=== PATIENT | male | born 1970 | race American Indian/Alaskan Native ===

== ENCOUNTER 2016-03-30 01:53 | Inpatient (IN) | payer OTHER ==
[2016-03-30 02:36] LABS: Basophils % (Auto) 1.2 % (0.0-1.8); Eosinophils % (Auto) 0.7 % (0.0-4.3); Hematocrit 43.1 % (35.5-45.6); Hemoglobin 14.6 gm/dl (11.8-15.2); Mean Corpuscular HGB Conc 34 % (32-34); Mean Corpuscular Hemoglobin 31 pg (28-32); Mean Corpuscular Volume 91 fl (84-94); Red Blood Count 4.73 M/mm3 (3.65-5.03); Red Cell Distribution Width 13.5 % (13.2-15.2); White Blood Count 7.8 K/mm3 (4.5-11.0)
[2016-03-30 02:38] LABS: Platelet Count 144 K/mm3 (140-440)
[2016-03-30 02:48] LABS: Blood Urea Nitrogen 9 mg/dL (9-20); Calcium 8.7 mg/dL (8.4-10.2); Carbon Dioxide 25 mmol/L (22-30); Chloride 99.6 mmol/L (98-107); Glucose 103 mg/dL (75-100); Potassium 3.9 mmol/L (3.6-5.0); Sodium 139 mmol/L (137-145)
[2016-03-30 02:53] LABS: Anion Gap 18 mmol/L
[2016-03-30] MEDS ORDERED: NITRO-BID 2% TP ONE (03:07)
[2016-03-30] MEDS ORDERED: MORPHINE IV ONE (03:08)
[2016-03-30] MEDS ORDERED: ZOFRAN IV ONE (03:08)
[2016-03-30] MEDS ORDERED: ASPIRIN PO ONE (03:12)
--- NOTE | 2016-03-30 03:48 | Cat Scan Report ---
FINAL REPORT PROCEDURE: CT HEAD/BRAIN WO CON TECHNIQUE: Computerized tomography of the head was performed without contrast material. HISTORY: RIVERO, SYNCOPE COMPARISON: No prior studies are available for comparison. FINDINGS: Skull and scalp: Normal. Paranasal sinuses: Normal. Ventricles and subarachnoid spaces: Normal. Cerebrum: No evidence of hemorrhage, acute infarction or mass. 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 Cerebellum and brainstem: No evidence of hemorrhage, acute infarction or mass. Vasculature: Normal. Comments: None. IMPRESSION: There is no acute intracranial abnormality.
--- NOTE | 2016-03-30 04:56 | Emergency Department Report ---
ED Chest Pain HPI - General Chief Complaint: Chest Pain Stated Complaint: SYNCOPE/KNEE SWELLING Time Seen by Provider: 03/30/16 02:55 Source: patient Mode of arrival: Ambulatory Limitations: No Limitations - History of Present Illness Initial Comments: 45 year male with a past medical history hypertension presents to Hospital complaints of chest pain since yesterday syncopal episode today. Patient is a left-sided chest tightness that is intermittent with associated shortness of breath. Fluctuates in intensity. Symptoms rated 8/10 in intensity and currently described as a soreness. 2 episodes of vomiting today with associated nausea. One episode of syncope while at work after a vomiting episode. Preceding lightheadedness. Patient struck his head and complains of frontal headache after syncopal episode. No complaints of neck pain or abdominal pain. Patient's been compliant with Norvasc which she was started on in February at the ER visit. He subsequently did follow-up with the clinic and reports that his blood pressure was okay at the time. Denies previous stress test Severity scale (0 -10): 7 - Related Data Previous Rx's Medication Instructions Recorded Last Taken Type Ciprofloxacin HCl [Ciprofloxacin 500 mg PO Q12HR #14 tab 03/09/16 Unknown Rx TAB] amLODIPine [Norvasc] 5 mg PO DAILY #30 tab 03/09/16 Unknown Rx Allergies Allergy/AdvReac Type Severity Reaction Status Date / Time No Known Allergies Allergy Unverified 03/09/16 10:49 YOLANDE score - Yolande Score Age > 65: (0) No Aspirin use within the Past 7 Days: (0) No 3 or more CAD Risk Factors: (1) Yes 2 or more Angina events in past 24 hrs: (1) Yes Known CAD with more than 50% Stenosis: (0) No Elevated Cardiac Markers: (0) No ST Deviation Greater than 0.5mm: (0) No YOLANDE Score: 2 ED Review of Systems ROS: Stated complaint: SYNCOPE/KNEE SWELLING Other details as noted in HPI Comment: All other systems reviewed and negative Other: Constitutional: No fevers chills Eyes: No eye pain visual changes ENT: No ear pain or throat pain Neck: Denies pain Respiratory: Denies cough wheezing Cardiovascular as per HPI GI: Denies abdominal pain : Denies dysuria Musculoskeletal: Denies back pain Skin: Denies rash, lesions, erythema Neurologic: Denies headache, numbness, weakness Psychiatric: Denies suicidal ideation, hallucinations ED Past Medical Hx - Social History Smoking Status: Light Tobacco Smoker Substance Use Type: Alcohol - Medications Home Medications: Home Medications Medication Instructions Recorded Confirmed Last Taken Type Ciprofloxacin HCl [Ciprofloxacin 500 mg PO Q12HR #14 tab 03/09/16 Unknown Rx TAB] amLODIPine [Norvasc] 5 mg PO DAILY #30 tab 03/09/16 Unknown Rx ED Physical Exam - General Limitations: No Limitations - Other Other exam information: General: No limitations, patient is alert in no acute distress Head exam: Atraumatic, normocephalic Eyes exam: Normal appearance, pupils equal reactive to light, extraocular movements intact ENT: Moist mucous membrane, normal oropharynx Neck exam: Normal inspection, full range of motion, no meningismus nontender Respiratory exam: Clear to auscultation bilateral, no wheezes, rales, crackles Cardiovascular: Normal rate and rhythm, normal heart sounds, left-sided chest wall tenderness Abdomen: Soft, nondistended, and nontender, with normal bowel sounds, no rebound, or guarding Extremity: Full range of motion normal inspection no deformity, no specific knee swelling or ankle swelling, or tenderness Back: Normal Inspection, full range of motion, no tenderness Neurologic: Alert, oriented x3, cranial nerves intact, no motor or sensory deficit Psychiatric: normal affect, normal mood Skin: Warm, dry, intact ED Course Vital Signs 03/30/16 03/30/16 03/30/16 02:17 03:10 03:20 Temperature 98.4 F Pulse Rate 90 86 Respiratory 20 18 18 Rate Blood Pressure 181/116 Blood Pressure 185/101 [Left] O2 Sat by Pulse 99 97 97 Oximetry 03/30/16 03:25 Temperature Pulse Rate 87 Respiratory Rate Blood Pressure 183/108 Blood Pressure [Left] O2 Sat by Pulse Oximetry - Reevaluation(s) Reevaluation #1: 03/30/16 05:05 Patient pain improved. Received morphine, nitroglycerin ED Medical Decision Making - Lab Data Result diagrams: 03/30/16 02:27 03/30/16 02:27 Lab Results 03/30/16 03/30/16 03/30/16 Range/Units 02:27 02:27 02:27 WBC 7.8 (4.5-11.0) K/mm3 RBC 4.73 (3.65-5.03) M/mm3 Hgb 14.6 (11.8-15.2) gm/dl Hct 43.1 (35.5-45.6) % MCV 91 (84-94) fl MCH 31 (28-32) pg MCHC 34 (32-34) % RDW 13.5 (13.2-15.2) % Plt Count 144 (140-440) K/mm3 Lymph % (Auto) 38.2 H (13.4-35.0) % Gates % (Auto) 6.1 (0.0-7.3) % Eos % (Auto) 0.7 (0.0-4.3) % Baso % (Auto) 1.2 (0.0-1.8) % Lymph # 3.0 (1.2-5.4) K/mm3 Gates # 0.5 (0.0-0.8) K/mm3 Eos # 0.1 (0.0-0.4) K/mm3 Baso # 0.1 (0.0-0.1) K/mm3 Seg Neutrophils % 53.8 (40.0-70.0) % Seg Neutrophils # 4.2 (1.8-7.7) K/mm3 D-Dimer (0-234) ng/mlDDU Sodium 139 (137-145) mmol/L Potassium 3.9 (3.6-5.0) mmol/L Chloride 99.6 (98-107) mmol/L Carbon Dioxide 25 (22-30) mmol/L Anion Gap 18 mmol/L BUN 9 (9-20) mg/dL Creatinine 0.9 (0.8-1.5) mg/dL Estimated GFR > 60 ml/min BUN/Creatinine Ratio 10.00 % Glucose 103 H (75-100) mg/dL Calcium 8.7 (8.4-10.2) mg/dL Total Creatine Kinase 367 H (55-170) units/L CK-MB (CK-2) 7.0 H (0.0-4.0) ng/mL CK-MB (CK-2) Rel Index 1.9 (0-4) Troponin T < 0.010 (0.00-0.029) ng/mL 03/30/16 Range/Units 04:08 WBC (4.5-11.0) K/mm3 RBC (3.65-5.03) M/mm3 Hgb (11.8-15.2) gm/dl Hct (35.5-45.6) % MCV (84-94) fl MCH (28-32) pg MCHC (32-34) % RDW (13.2-15.2) % Plt Count (140-440) K/mm3 Lymph % (Auto) (13.4-35.0) % Gates % (Auto) (0.0-7.3) % Eos % (Auto) (0.0-4.3) % Baso % (Auto) (0.0-1.8) % Lymph # (1.2-5.4) K/mm3 Gates # (0.0-0.8) K/mm3 Eos # (0.0-0.4) K/mm3 Baso # (0.0-0.1) K/mm3 Seg Neutrophils % (40.0-70.0) % Seg Neutrophils # (1.8-7.7) K/mm3 D-Dimer 177.59 (0-234) ng/mlDDU Sodium (137-145) mmol/L Potassium (3.6-5.0) mmol/L Chloride (98-107) mmol/L Carbon Dioxide (22-30) mmol/L Anion Gap mmol/L BUN (9-20) mg/dL Creatinine (0.8-1.5) mg/dL Estimated GFR ml/min BUN/Creatinine Ratio % Glucose (75-100) mg/dL Calcium (8.4-10.2) mg/dL Total Creatine Kinase (55-170) units/L CK-MB (CK-2) (0.0-4.0) ng/mL CK-MB (CK-2) Rel Index (0-4) Troponin T (0.00-0.029) ng/mL - EKG Data -: EKG Interpreted by Me (sinus niurka 49, junctional escape) - Radiology Data Radiology results: report reviewed (CT head: No acute findings) - Medical Decision Making Plan admit patient to the hospital. Chest x-ray reveals narrow mediastinum, d- dimer negative, initial cardiac enzymes negative. CT head unremarkable. We'll admit for further workup for chest tightness with associated syncope - Differential Diagnosis MN, unstable angina, PE, dissection, atypical chest pain Critical Care Time: No Critical care attestation.: If time is entered above; I have spent that time in minutes in the direct care of this critically ill patient, excluding procedure time. ED Disposition Clinical Impression: Uncontrolled hypertension Chest pain Qualifiers: Chest pain type: unspecified Qualified Code(s): R07.9 - Chest pain, unspecified Syncope Qualifiers: Syncope type: unspecified Qualified Code(s): R55 - Syncope and collapse Disposition: OP ADMITTED IP TO THIS HOSP Is pt being admited?: Yes Does the pt Need Aspirin: Yes Condition: Stable Time of Disposition: 04:56 (DR Frazier/hosp)
[2016-03-30] MEDS ORDERED: NITROSTAT SL PRN (10:03)
[2016-03-30] MEDS ORDERED: MILK OF MAGNESIA PO PRN (10:03)
[2016-03-30] MEDS ORDERED: DULCOLAX PR PRN (10:03)
[2016-03-30] MEDS ORDERED: SODIUM CHLORIDE FLUSH SYRINGE 10 ML IV PRN (10:03)
[2016-03-30] MEDS ORDERED: ZOFRAN IV PRN (10:03)
--- NOTE | 2016-03-30 10:26 | History and Physical Report ---
History of Present Illness Date of examination: 03/30/16 Date of admission: 03/30/16 Chief complaint: chest pain History of present illness: Patient is a 45 years old obese -[place] male, smoker, with hypertension , presents to ER complaining of chest pain. Chest pain started last night while he was working and since then has been intermittent; it is substernal, severe, with no radiation, but associated with nausea, vomiting, sweating, shortness of breath and one syncopal episode per patient statement; it was not witnessed and unclear if he has lost consciousness. Past History Past Medical History: hypertension Past Surgical History: hernia repair, Other (tibia/fibula fracture) Social history: other (light smoker, drinks alcohol occasionally, denies drug use) Family history: hypertension Medications and Allergies Allergies Allergy/AdvReac Type Severity Reaction Status Date / Time No Known Allergies Allergy Unverified 03/09/16 10:49 Home Medications Medication Instructions Recorded Confirmed Last Taken Type No Known Home Medications [No 03/30/16 03/30/16 Unknown History Reported Home Medications] Active Meds: Active Medications Acetaminophen (Tylenol) 650 mg PO Q4H PRN PRN Reason: Pain MILD(1-3)/Fever >100.5/RIVERO Aspirin (Baby Aspirin) 81 mg PO QDAY ROSA Bisacodyl (Dulcolax) 10 mg FL QDAY PRN PRN Reason: Constipation unrelieved by MOM Enoxaparin Sodium (Lovenox) 40 mg SUB-Q QDAY ROSA Magnesium Hydroxide (Milk Of Magnesia) 30 ml PO Q4H PRN PRN Reason: Constipation Morphine Sulfate (Morphine) 2 mg IV Q5MIN PRN PRN Reason: Chest Pain Nitroglycerin (Nitrostat) 0.4 mg SL Q5M PRN PRN Reason: Chest Pain Ondansetron HCl (Zofran) 4 mg IV Q8H PRN PRN Reason: N/V unrelieved by Reglan Sodium Chloride (Sodium Chloride Flush Syringe 10 Ml) 10 ml IV PRN PRN PRN Reason: LINE FLUSH Review of Systems Constitutional: no weight loss, no weight gain, no fever, no chills Ears, nose, mouth and throat: no ear pain, no nasal congestion, no sinus pressure, no dysphagia, no sore throat Cardiovascular: chest pain, lightheadedness, shortness of breath, dyspnea on exertion, no palpitations Respiratory: shortness of breath, dyspnea on exertion, no cough, no congestion, no wheezing Gastrointestinal: nausea, vomiting, no abdominal pain, no change in bowel habits , no hematemesis, no coffee ground emesis Genitourinary Male: no dysuria, no hematuria, no flank pain, no discharge, no urinary frequency Rectal: no pain, no incontinence, no itching, no hemorrhoids Musculoskeletal: no arm numbness/tingling, no leg numbness/tingling Integumentary: no rash, no pruritis, no redness, no sores, no wounds Neurological: syncope (?), no paralysis, no weakness, no parathesias, no numbness, no tingling, no vertigo, no headaches, no migraines, no change in mentation Psychiatric: no anxiety, no memory loss, no depression, no difficulties concentrating Endocrine: no cold intolerance, no heat intolerance, no polydipsia, no polyuria Hematologic/Lymphatic: no easy bruising, no easy bleeding, no lymphadenopathy, no lymphedema Allergic/Immunologic: no persistent infections Exam - Constitutional Vitals: Temp Pulse Resp BP Pulse Ox 98.4 F 89 18 129/71 96 03/30/16 02:17 03/30/16 07:03 03/30/16 07:03 03/30/16 07:03 03/30/16 07:03 General appearance: Present: no acute distress, obese - EENT Eyes: Present: PERRL, EOM intact. Absent: scleral icterus, conjunctival injection - Neck Neck: Present: supple, normal ROM. Absent: masses or JVD - Respiratory Respiratory effort: normal Respiratory: bilateral: CTA, negative: rales, rhonchi, wheezing - Cardiovascular Rhythm: regular Heart Sounds: Present: S1 & S2. Absent: systolic murmur - Extremities Extremities: no ischemia, No edema - Abdominal General gastrointestinal: Present: soft, non-tender, non-distended, normal bowel sounds - Integumentary Integumentary: Present: warm, dry. Absent: jaundice, rash - Musculoskeletal Musculoskeletal: strength equal bilaterally - Psychiatric Psychiatric: cooperative - Neurologic Neurologic: CNII-XII intact, no focal deficits Results - Labs CBC & Chem 7: 03/30/16 02:27 03/30/16 02:27 Labs: Abnormal lab results 03/30/16 03/30/16 03/30/16 Range/Units 02:27 02:27 02:27 Lymph % (Auto) 38.2 H (13.4-35.0) % Glucose 103 H (75-100) mg/dL Total Creatine Kinase 367 H (55-170) units/L CK-MB (CK-2) 7.0 H (0.0-4.0) ng/mL - Imaging and Cardiology EKG: image reviewed (LVH) Chest x-ray: image reviewed (no acute findings) CT Scan - head: report reviewed Assessment and Plan 1. Chest pain In an obese and smoker patient with untreated hypertension, mild hyperglycemia EKG with findings of LVH Troponin negative Will check hemoglobin A1c and lipid profile Obtain echocardiogram and stress test Start aspirin, beta geovany, JOSE inhibitor When necessary nitroglycerin, morphine 2. Syncope Unclear if real syncopal episode or just lightheadedness in the setting of chest pain/shortness of breath CT head with no acute findings Workup for chest pain in progress 3. HTN urgency Started on amlodipine last month and reports compliance EKG with signs of LVH BP on admission 185/101 Start beta geovany and JOSE inhibitor given #1 Monitor BP and adjust regimen as needed (consider adding a diuretic) 4. Mild rhabdomyolysis With normal renal function Monitor 5. Obesity Counseled regarding importance of losing weight and left sternal changes 6. Tobacco use Counseled regarding importance of quitting (10 minutes) 7. DVT prophylaxis Lovenox
[2016-03-30] MEDS: LOPRESSOR PO SCH ×2 (11:20→21:41)
[2016-03-30] MEDS ORDERED: BABY ASPIRIN ONE (11:33)
[2016-03-30] MEDS ORDERED: LOVENOX SUB-Q ONE (11:33)
[2016-03-30] MEDS: BABY ASPIRIN PO SCH (11:41)
[2016-03-30] MEDS: TYLENOL PO PRN ×2 (11:42→21:49)
[2016-03-30] MEDS: LOVENOX SUB-Q SCH (11:42)
[2016-03-30] MEDS: MORPHINE IV PRN ×2 (16:32→21:49)
[2016-03-30] MEDS ORDERED: APRESOLINE IV PRN (17:53)
[2016-03-30] MEDS ORDERED: APRESOLINE IV ONE (18:00)
[2016-03-30] MEDS ORDERED: ZESTRIL PO ONE (18:00)
[2016-03-30] MEDS ORDERED: HABITROL TD SCH (21:00)
--- NOTE | 2016-03-31 00:50 | Admit Criteria Form ---
Admission Criteria Documentation: CHEST PAIN Clinical Indications for Admission to Inpatient Care (Place 'X' for any and all applicable criteria): Admission is indicated for chest pain and ANY ONE of the following(1)(2)(3)(4)(5 ): [ ]I. Angina with acute coronary syndrome (Also use Myocardial Infarction or Angina guideline) [ ]II. Hemodynamic instability [ ]III. Angina needing acute intervention as indicated by ALL of the following( 11)(12): [ ]a) Unstable angina is present as indicated by angina that is ANY ONE of the following: [ ]i) New onset [ ]ii) Nocturnal [ ]iii) Prolonged at rest [ ]iv) Progressive [ ]b) Angina warrants acute intervention as indicated by ANY ONE of the following: [ ]i) Recurrent angina (e.g, not responding as previously to treatment) [ ]ii) Angina at rest or with low-level activities despite initial medical therapy [ ]iii) New or presumably new ST-segment depression on ECG [ ]iv) Signs or symptoms of heart failure (eg, dyspnea, pulmonary edema) [ ]v) New or worsening mitral regurgitation [ ]vi) Hemodynamic instability [ ]vii) Dangerous arrhythmia (eg, sustained ventricular tachycardia) [ ]viii) History of percutaneous coronary intervention within 6 months [ ]ix) History of coronary artery bypass graft surgery [ ]x) YOLANDE risk score of 2 or greater[A] [ ]xi) History of Diabetes(14) [ ]xii) High-risk cardiac ischemia findings on noninvasive testing (e.g, echocardiogram, treadmill testing, nuclear scan) [ ]xiii) Chronic renal insufficiency (ie, estimated GFR less than 60 mL/min/1.732m) [ ]xiv) Left ventricular ejection fraction less than 40% [ ]IV. Evidence of WA (eg, cardiac biomarkers positive, ST-segment elevation on ECG) also use Myocardial Infarction Criteria Form. [ ]V. Pulmonary edema [ ]. Respiratory distress [ ]VII. Chest pain indicative of serious diagnosis other than coronary artery disease (eg, aortic dissection) [ ]VIII. Contraindications and/or Inappropriate clinical situations for Observational Care in patients with Chest Pain, when ANY ONE of the following is required: [ ]a) Patient with risk factor for pulmonary embolism, acute coronary syndrome and myocardial infarction (18) [ ]b) Patient with Pulmonary embolism require an average LOS of 4.3 days, therefore emergency department observation management is inappropriate 18,23 [ ]c) Painful condition/s in the elderly, have the highest rate of recidivism after emergency department observation management (10.8%) 20,21,22 [ ]d) Elevated cardiac biomarker requires intensive and exhaustive care (19) [ X]IX. General contraindications and/or Inappropriate clinical situations for Observational Care in patients with Chest Pain, when ANY ONE of the following is required: [ ]a) Prediction of prolongation of LOS based on ANY ONE of the following may be considered as a contraindication for observational care 2, 3, 4, 5, 6, 7, 8, 9, 10, 11 [ ]i) Age > 65 yrs. [ ]ii) Patient arriving by ambulance [ ]iii) Patient with high acuity [ ]iv) Patient requiring vital sign monitoring [ ]v) Patient on IV medication [X ]b) Systolic blood pressures 180mmHg 3,12 [ ]c) Patient with altered mental status including delirium and other alteration of consciousness, (3) [ ]d) Patient whose discharge disposition will be to a prison home or rehabilitation home should not be managed in Emergency Department Observation Unit. CMS rule requires 3 days hospital stay before such placement. 3,13 [ ]e) Patient with failure to thrive due to broad array of etiologies 3,16,17 [ ]f) Inability to ambulate 3,14 Extended stay beyond goal length of stay may be needed for (1)(28): [ ]a) Specific condition diagnosed after evaluation (eg, pulmonary embolism, aortic dissection) [ ]b) Unstable angina [ ]c) Continued suspicion of acute coronary syndrome with inability to complete needed cardiac evaluation (eg, patient clinically unable to undergo stress testing) [ ]d) Myocardial infarction (Contents from ANGINA and CHEST PAIN clinical indications for admission to inpatient care have been integrated in this form) The original [facility] content created by [employer] has been revised. The portions of the content which have been revised are identified through the use of italic text or in bold, and [employer] [employer] has neither reviewed nor approved the modified material. All other unmodified content is copyright [employer]. Please see references footnoted in the original [employer] edition 2016 Admission Criteria Met: Yes
[2016-03-31] MEDS ORDERED: LEXISCAN IV ONE ×2 (08:04→08:14)
--- NOTE | 2016-03-31 09:57 | Echocardiography Report ---
Transthoracic Echocardiogram BP: 136/84 Conclusions *The left ventricular chamber size is normal. *Severe concentric left ventricular hypertrophy is observed. *The estimated ejection fraction is 60-65%. *Abnormal left ventricular diastolic filling is observed, consistent with impaired relaxation. *There is mild aortic regurgitation. Findings Left Ventricle: The left ventricular chamber size is normal. Severe concentric left ventricular hypertrophy is observed. Global left ventricular systolic function is normal. The estimated ejection fraction is 60-65%. Abnormal left ventricular diastolic filling is observed, consistent with impaired relaxation. Left Atrium: The left atrial chamber size is normal. Right Ventricle: The right ventricular chamber size and systolic function are within normal limits. Right Atrium: The right atrial cavity size is normal. Aortic Valve: The aortic valve is trileaflet. There is mild aortic regurgitation. There is no evidence of aortic stenosis. Mitral Valve: The mitral valve appears normal in structure and function. Tricuspid Valve: The tricuspid valve appears normal in structure and function. Pulmonic Valve: The pulmonic valve appears normal in structure and function. Pericardium: There is no pericardial effusion. Aorta: There is no dilatation of the aortic root. Venous: The inferior vena cava appears normal. Measurements Chambers MM Name Value Normal Range Ao root diameter (MM) 3.7 cm (2 - 3.7) AV cusp separation (MM) 2.5 cm (1.5 - 2.6) Chambers 2D Name Value Normal Range IVSd (2D) 1.91 cm (0.6 - 1.1) LVPWd (2D) 2.01 cm (0.6 - 1.1) IVS:LVPW ratio (2D) 0.95 ratio - LVIDd (2D) 4.08 cm (3.7 - 5.6) LVIDs (2D) 3.24 cm (2 - 3.8) LV FS (Teichholz) (2D) 20.6 % - LV FS (cube) (2D) 20.6 % - EF Teichholz (2D) 42.5 % - LA dimension (AP) 2D 3.8 cm (1.9 - 4) Volumes/Mass Name Value Normal Range LA ESV SP 4CH (MOD) 37 ml - LA ESV SP 2CH (MOD) 86 ml - LA ESV BP (MOD) 58 ml - LA ESV BP (MOD) index 26.7 ml/m2 - LV EDV SP 4CH (MOD) 124 ml - LV ESV SP 4CH (MOD) 40 ml - EF SP 4CH (MOD) 68 % - LV EDV SP 2CH (MOD) 113 ml - LV ESV SP 2CH (MOD) 40 ml - EF SP 2CH (MOD) 65 % - LV EDV BP 123 ml - LV ESV BP 41 ml - BP EF (MOD) 67 % - Diastolic/Systolic Function Name Value Normal Range MV E-wave Vmax 0.72 m/sec - MV deceleration time 243 msec - MV A-wave Vmax 0.77 m/sec - MV E:A ratio 0.9 ratio - LV septal e' Vmax 0.06 m/sec - LV lateral e' Vmax 0.03 m/sec - LV E:e' septal ratio 11.9 ratio - LV E:e' lateral ratio 23.7 ratio - Aortic Valve Name Value Normal Range AV VTI 21.4 cm - AV mean gradient 4 mmHg - LVOT diameter 2.6 cm - LVOT VTI 17.7 cm - LVOT mean gradient 3 mmHg - SV LVOT 94 ml - SALEEM (continuity VTI) 4.39 cm2 - AR PHT 509 msec - AR peak gradient 113 mmHg -
[2016-03-31] MEDS ORDERED: ZESTRIL PO SCH (10:00)
[2016-03-31] MEDS: BABY ASPIRIN PO SCH (10:50)
[2016-03-31] MEDS: LOPRESSOR PO SCH (10:51)
[2016-03-31] MEDS: LOVENOX SUB-Q SCH (10:51)
--- NOTE | 2016-03-31 11:12 | XRay Report ---
AP CHEST: HISTORY: chest pain AP view of the chest demonstrates a normal mediastinal and cardiac contour with clear lungs and normal bony and soft tissue structures. IMPRESSION: Unremarkable AP chest.
[2016-03-31 12:03] VITALS: BP 138/83
--- NOTE | 2016-03-31 14:47 | Progress Note ---
Assessment and Plan Assessment and plan: 1. Chest pain In an obese and smoker patient with untreated hypertension, mild hyperglycemia EKG with findings of LVH Cardiac enzymes negative Hemoglobin A1c 6 and lipids within normal limits Echocardiogram showing LVH, EF 60-65%, abnormal diastolic filling Stress test obtained, results pending Started on aspirin, beta geovany, JOSE inhibitor When necessary nitroglycerin, morphine 2. Syncope Unclear if real syncopal episode or just lightheadedness in the setting of chest pain/shortness of breath CT head with no acute findings Workup for chest pain in progress 3. HTN urgency Long-standing hypertension, treatment initiated last month with amlodipine EKG with signs of LVH BP on admission 185/101 Started on beta geovany and JOSE inhibitor given #1 BP better controlled; continue to monitor for another 24 hours and adjust regimen as needed 4. Mild rhabdomyolysis With normal renal function Monitor 5. Obesity Counseled regarding importance of losing weight and left sternal changes 6. Tobacco use Nicotine patch Counseled regarding importance of quitting 7. DVT prophylaxis Lovenox History Interval history: chest pain free, no other complaints Hospitalist Physical - Constitutional Vitals: Temp Pulse Resp BP Pulse Ox 98.6 F 77 18 138/83 94 03/31/16 12:02 03/31/16 12:02 03/31/16 12:02 03/31/16 12:02 03/31/16 12:02 General appearance: Present: no acute distress, obese - EENT Eyes: Present: PERRL, EOM intact. Absent: scleral icterus, conjunctival injection - Neck Neck: Present: supple, normal ROM. Absent: masses or JVD - Respiratory Respiratory effort: normal Respiratory: bilateral: CTA, negative: rhonchi, wheezing - Cardiovascular Rhythm: regular Heart Sounds: Present: S1 & S2. Absent: systolic murmur - Extremities Extremities: no ischemia - Abdominal General gastrointestinal: soft, non-tender, non-distended, normal bowel sounds - Integumentary Integumentary: Present: warm, dry. Absent: jaundice, rash - Psychiatric Psychiatric: no intact judgment & insight, cooperative - Neurologic Neurologic: CNII-XII intact, no focal deficits Results - Labs CBC & Chem 7: 03/30/16 02:27 03/30/16 02:27 Labs: Laboratory Last Values WBC 7.8 K/mm3 (4.5-11.0) 03/30/16 02:27 RBC 4.73 M/mm3 (3.65-5.03) 03/30/16 02:27 Hgb 14.6 gm/dl (11.8-15.2) 03/30/16 02:27 Hct 43.1 % (35.5-45.6) 03/30/16 02:27 MCV 91 fl (84-94) 03/30/16 02:27 MCH 31 pg (28-32) 03/30/16 02:27 MCHC 34 % (32-34) 03/30/16 02:27 RDW 13.5 % (13.2-15.2) 03/30/16 02:27 Plt Count 144 K/mm3 (140-440) 03/30/16 02:27 Lymph % (Auto) 38.2 % (13.4-35.0) H 03/30/16 02:27 Randolph % (Auto) 6.1 % (0.0-7.3) 03/30/16 02:27 Eos % (Auto) 0.7 % (0.0-4.3) 03/30/16 02:27 Baso % (Auto) 1.2 % (0.0-1.8) 03/30/16 02:27 Lymph # 3.0 K/mm3 (1.2-5.4) 03/30/16 02:27 Randolph # 0.5 K/mm3 (0.0-0.8) 03/30/16 02:27 Eos # 0.1 K/mm3 (0.0-0.4) 03/30/16 02:27 Baso # 0.1 K/mm3 (0.0-0.1) 03/30/16 02:27 Seg Neutrophils % 53.8 % (40.0-70.0) 03/30/16 02:27 Seg Neutrophils # 4.2 K/mm3 (1.8-7.7) 03/30/16 02:27 D-Dimer 177.59 ng/mlDDU (0-234) 03/30/16 04:08 Sodium 139 mmol/L (137-145) 03/30/16 02:27 Potassium 3.9 mmol/L (3.6-5.0) 03/30/16 02:27 Chloride 99.6 mmol/L (98-107) 03/30/16 02:27 Carbon Dioxide 25 mmol/L (22-30) 03/30/16 02:27 Anion Gap 18 mmol/L 03/30/16 02:27 BUN 9 mg/dL (9-20) 03/30/16 02:27 Creatinine 0.9 mg/dL (0.8-1.5) 03/30/16 02:27 Estimated GFR > 60 ml/min 03/30/16 02:27 BUN/Creatinine Ratio 10.00 % 03/30/16 02:27 Glucose 103 mg/dL (75-100) H 03/30/16 02:27 Hemoglobin A1c 6.0 % (4-6) 03/30/16 10:17 Calcium 8.7 mg/dL (8.4-10.2) 03/30/16 02:27 Total Creatine Kinase 367 units/L (55-170) H 03/30/16 02:27 CK-MB (CK-2) 7.0 ng/mL (0.0-4.0) H 03/30/16 02:27 CK-MB (CK-2) Rel Index 1.9 (0-4) 03/30/16 02:27 Troponin T < 0.010 ng/mL (0.00-0.029) 03/30/16 08:25 Triglycerides 112 mg/dL (2-149) 03/30/16 10:17 Cholesterol 141 mg/dL (50-199) 03/30/16 10:17 LDL Cholesterol Direct 71 mg/dL (50-130) 03/30/16 10:17 HDL Cholesterol 48 mg/dL (40-59) 03/30/16 10:17 Cholesterol/HDL Ratio 2.93 % 03/30/16 10:17 - Imaging and Cardiology Chest x-ray: image reviewed Imaging and Cardiology: ECHO - LVH, EF 60-65%, abnormal diastolic filling
--- NOTE | 2016-03-31 16:21 | Discharge Summary ---
Providers - Providers Date of Admission: 03/30/16 10:47 Date of discharge: 03/31/16 Attending physician: NISREEN DAILY Primary care physician: BILL OF [employer] CLERK Hospitalization Condition: Stable Hospital course: Patient left AMA without notifying anybody. Disposition: LEFT AGAINST MEDICAL ADVICE Core Measure Documentation - Palliative Care Palliative Care/ Comfort Measures: Not Applicable - Core Measures Any of the following diagnoses?: none Exam - Constitutional Vitals: Temp Pulse Resp BP Pulse Ox 98.6 F 77 18 138/83 94 03/31/16 12:02 03/31/16 12:02 03/31/16 12:02 03/31/16 12:02 03/31/16 12:02 Plan
--- NOTE | 2016-04-01 01:55 | Treadmill Report ---
INDICATION: Chest pain. ORDERING PHYSICIAN: Dr. Lindsey Rothman. FINDINGS: There is no scintigraphic evidence of myocardial ischemia. The left ventricle is normal in size. The left ventricular wall motion and thickening is normal. The left ventricular ejection fraction, however, is measured at 38%. CONCLUSION: 1. No scintigraphic evidence of myocardial ischemia. 2. Normal wall motion and wall thickening, yet the left ventricular ejection fraction is measured at 38%. 3. Correlation with a transthoracic echocardiogram is warranted. JOB# [id number] THI/LORNA
== END 2016-03-31 13:50 | disposition left against medical advice (07) | DRG 313 ==
LOC: ED 01:53 → 4A 10:47
PROVIDERS: ADMIT Internal Medicine; ATTEND Internal Medicine
DX: R07.9 Chest pain, unspecified (principal); M62.82 Rhabdomyolysis; I10 Essential (primary) hypertension; R55 Syncope and collapse; F17.200 Nicotine dependence, unspecified, uncomplicated; R73.9 Hyperglycemia, unspecified; I16.0 Hypertensive urgency; E66.9 Obesity, unspecified; Z72.89 Other problems related to lifestyle; Z82.49 Family history of ischemic heart disease and other diseases of the circulatory system; Z68.33 Body mass index [BMI] 33.0-33.9, adult
CPT/HCPCS: 36415; 70450; 71010; 78452; 80048; 80061; 82550; 82553; 82962; 83036; 84484; 85025; 85379; 87086; 93005; 93010; 93017; 93306; 96374; 96375; A9502; J0360; J1650; J2270; J2405; J2785